=== PATIENT | female | born 1950 | race Caucasian/White ===

== ENCOUNTER 2024-06-10 09:06 | Inpatient (IN) | payer MEDICARE ==
[~2024-06-10] VITALS: Ht 147.3 cm; Wt 106.3 kg
[2024-06-10] VITALS (198 sets, daily range): BP systolic 105–140; BP diastolic 53–76; PULSE 77–84; TEMP 98–98.7; O2SAT 82–100
[2024-06-10] MEDS ORDERED: TYLENOL 500MG500 MG PO (11:19)
[2024-06-10] MEDS ORDERED: VITAMIN D31000 I1 PO (11:23)
[2024-06-10] MEDS ORDERED: ENTRESTO 24 MG1 EACH PO (11:27)
[2024-06-10] MEDS ORDERED: HYGROTON 2525 MG/TAB PO (11:29)
[2024-06-10] MEDS ORDERED: ELIQUIS 5MG PO (11:30)
[2024-06-10] MEDS ORDERED: DICLOFENAC SOD2.5 ML TOP (11:31)
[2024-06-10] MEDS ORDERED: CRESTOR20 MG PO (11:32)
[2024-06-10] MEDS ORDERED: COREG 25MG25 MG/TAB PO (11:33)
[2024-06-10] MEDS ORDERED: K-DUR20 MEQ PO (11:34)
[2024-06-10] MEDS ORDERED: MACROBID 1100 MG/CAP PO (11:35)
[2024-06-10] MEDS ORDERED: NEURONTIN300 MG/CAP PO (11:37)
[2024-06-10] MEDS ORDERED: Docusate Sodium 100 MG CAP PO PRN (13:00)
[2024-06-10] MEDS ORDERED: NS 1,000 ML IV SCH (13:00)
[2024-06-10] MEDS ORDERED: Polyethylene Glycol 3350 17 GM PDS PO PRN (13:00)
[2024-06-10] MEDS ORDERED: Ondansetron 4 MG/2 ML VIAL IV PRN (13:00)
[2024-06-10] MEDS ORDERED: Acetaminophen 325 MG TAB PO PRN (13:00)
[2024-06-10] MEDS ORDERED: cefTRIAXone 2 G in Water For Injection,Sterile 20 ML IV SCH (13:30)
[2024-06-10] MEDS ORDERED: Apixaban 5 MG TABLET PO SCH (21:00)
[2024-06-10] MEDS ORDERED: Gabapentin 300 MG CAP PO SCH (21:00)
[2024-06-10] MEDS ORDERED: Rosuvastatin 20 MG **** subs to Atorvastatin 40 MG PO SCH (21:00)
[2024-06-10] MEDS ORDERED: Atorvastatin 40 MG TAB PO SCH (21:00)
[2024-06-11] VITALS (15 sets, daily range): BP systolic 88–159; BP diastolic 57–85; PULSE 75–86; TEMP 98.5–98.8; O2SAT 95–96
[2024-06-11 05:00] LABS: BASO # 0.1 K/mm3 (0.0-0.2); BASO % 0.6 % (0.0-2.0); EOS % 0.1 % (0.0-4.0); GRAN # 6.2 K/mm3 (1.4-6.5); GRAN % 78.8 % (42.2-75.2); HEMOGLOBIN 11.4 g/dl (12.5-16.0); LYMPH # 0.8 K/mm3 (1.2-3.4); LYMPH % 10.7 % (20.0-51.0); MEAN CELL VOLUME 96 fl (80.0-100.0); MEAN CORPUSCULAR HEMOGLOBIN 33 pg (27-31); MEAN CORPUSCULAR HGB CONC 34 g/dl (33.0-37.0); MEAN PLATELET VOLUME 13.2 fl (7.4-10.4); MONO # 0.7 K/mm3 (0.1-0.6); MONO % 9.3 % (1.7-9.3); PLATELET COUNT 88 K/mm3 (130-400); RED BLOOD COUNT 3.48 M/mm3 (4.10-5.30); REDCELL DISTRIBUTION WIDTH-CV 13.5 % (11.5-14.5)
[2024-06-11 05:10] LABS: HEMATOCRIT 33.3 % (37.0-47.0)
[2024-06-11 05:24] LABS: ALBUMIN 2.6 g/dL (3.4-4.8); BILIRUBIN,TOTAL 0.6 mg/dL (0.2-1.2); CALCIUM 8.3 mg/dL (8.4-10.2); CREATININE, serum 1.2 mg/dL (0.57-1.11); POTASSIUM 3.1 mEq/L (3.5-4.5)
[2024-06-11] MEDS ORDERED: *Potassium Replacement Protocol MC SCH (05:45)
[2024-06-11] MEDS ORDERED: Potassium Chloride 100 ML IV SCH (05:45)
[2024-06-11] MEDS ORDERED: Cholecalciferol (Vit D3) 1000 Units TAB PO SCH (09:00)
--- NOTE | 2024-06-11 09:46 | NUR ---
Initial visit; Patient using telephone so Dryerman/Woman made certain she had a card letting her know of the availability of Spiritual Care at [facility] and a Dryerman/Woman will be here.
--- NOTE | 2024-06-11 09:50 | NUR ---
UPON ENTERING ROOM PT NOTED TO BE ALERT AND AWAKE. RN INDRODUCES SELF TO PT AND REVIEWS PLAN OF CARE FOR THE DAY.PT [id number] NO NEURO DEFICITS NOTED. PT CORRECTS RN WITH DATE RN HE GOT IT WRONG. CARDIAC ASSESMENT WNL WITH NO DEFICTS. RESP ASSESMENT SHOWS SLIGHTLY DIMINISHED LUNG SOUNDS IN BILATERAL LUNG BASES. PT NOTED TO BE ON A NC WITH 0.5 LPM. RN REMOVES OXYGEN AND MONITERS O2 SATS FOR 15 MIN WITH NO DECREASE IN SATURATION. HEENT SHOWS NO DEFICTS. GI ASSESMENT SHOWS NORMOACTIVE BOWELSOUNDS WITH A FLAT NONTENDER BELLY. ASSESMENT SHOWS ARENAS IN PLACE WWITH CLEAR URINE OUTPUT OF 300 ML. THIS WAS NOT EMPTIED FROM LAST SHIFT SO GFR CANNOT BE CALCULATED AT THIS TIME. SOCIAL ASSESMENT SHOWS NO DEFICTS AND PT DENIES FURTHER CARES AFTER DC FROM HOSPITAL. WILL CONTINUE TO MONITER PT THROUGHOUT THE DAY.
--- NOTE | 2024-06-11 13:33 | NUR ---
Orientor met with patient to discuss discharge planning. Patient lives alone in [place], [place] and sees Dr. Zainab Das for primary care. Patient gets her medications from [facility] in [place] with no difficulties. Patient stated she is on assistance programs for two of her expensive medications, Eloquis and Entresto. Patient mostly uses a cane for ambulation and has a walker available at home as needed. Patient reported she is normally independent with ADLS, including driving. Patient works for [employer]. Patient stated she has DPOA-HC completed designating her newphewDelbert (ph#[phone]). SW discussed PT/OT recommendation for Post Acute Rehab vs Home Health. SW provided Medicare.gov lists of options for both SNF and HH, while also discussing [place] [facility] as an option. Patient stated she has been to [place] [facility] before, however at this time prefers to return home. Patient stated she will think about Home Health. Discharge Plan: Home, considering HH SW contacted patient's PCP office and they did not have a copy of DPOA.
--- NOTE | 2024-06-11 19:41 | NUR ---
PT ALERT AND ORIENTED. RESPIRATIONS EVEN AND UNLABORED. PT REPOSITIONED IN BED. PT WAS DOING THE EXERCISED PT/OT GAVE HER TO DO. NO SIGN OF DISTRESS AT THIS TIME. CONTINUE PLAN OF CARE.
--- NOTE | 2024-06-11 20:52 | NUR ---
PT DENIES PAIN, NAUSEA, SOA. ENCOURAGED WATER INTAKE. NO SIGN OF DISTRESS AT THIS TIME. CONTINUE PLAN OF CARE.
[2024-06-12] VITALS (8 sets, daily range): BP systolic 100–126; BP diastolic 60–88; PULSE 79–90; TEMP 97.5–98.7
[2024-06-12 05:04] LABS: BASO # 0.1 K/mm3 (0.0-0.2); BASO % 0.8 % (0.0-2.0); EOS # 0.1 K/mm3 (0.0-0.7); EOS % 1.1 % (0.0-4.0); HEMATOCRIT 34.9 % (37.0-47.0); HEMOGLOBIN 11.7 g/dl (12.5-16.0); LYMPH # 1.3 K/mm3 (1.2-3.4); LYMPH % 21.1 % (20.0-51.0); MEAN CELL VOLUME 99 fl (80.0-100.0); MEAN CORPUSCULAR HEMOGLOBIN 33 pg (27-31); MEAN CORPUSCULAR HGB CONC 34 g/dl (33.0-37.0); MEAN PLATELET VOLUME 12.5 fl (7.4-10.4); MONO # 0.9 K/mm3 (0.1-0.6); MONO % 13.4 % (1.7-9.3); PLATELET COUNT 76 K/mm3 (130-400); RED BLOOD COUNT 3.54 M/mm3 (4.10-5.30); REDCELL DISTRIBUTION WIDTH-CV 13.6 % (11.5-14.5)
[2024-06-12 05:19] LABS: ALBUMIN 2.4 g/dL (3.4-4.8); BILIRUBIN,TOTAL 0.4 mg/dL (0.2-1.2); CALCIUM 8.3 mg/dL (8.4-10.2); CREATININE, serum 1.03 mg/dL (0.57-1.11); POTASSIUM 3.7 mEq/L (3.5-4.5)
[2024-06-12] MEDS ORDERED: Potassium Bicarbonate/Citrate 20 MEQ Effervescent TAB PO SCH (08:00)
[2024-06-12] MEDS ORDERED: Petrolatum, White Ointment 1 Each Tube TP PRN (09:30)
--- NOTE | 2024-06-12 11:32 | NUR ---
PT SITTING UP IN CHAIR AT THIS TIME. HAS AMBULATED WITH PT THIS AM, TOLERATED WELL. PT REPORTS NO PAIN, STATES NO COMPLAINTS. AFEBRILE AND ALL VSS. ARENAS REMOVED AT 1000, PT REQUEST INC PADS TO WEAR TODAY GENERALLY HAS SOME INCONTINENCE. IVF STOPPED AND PT TAKING PO WELL. AWAITING TRANSFER TO MEDICAL FLOOR WHEN BED BECOMES AVAILABLE.
--- NOTE | 2024-06-12 11:33 | NUR ---
Rolling Machine Operator and SW student met with patient to follow up on Home Health. Patient stated she does not feel she needs it at this time and plans to be extra cautious when she goes home. SW encouraged patient that if she changes her mind after she discharges, her PCP office can establish services for her. Patient verbalized understanding. SW contacted patient's nephew, Delbetr to provide update on discharge plan. Delbert indicated he has had some concerns about patient at home but that she has supportive neighbors and friends. Delbert had no futher questions or concerns for SW at this time. Discharge Plan: Home, declined HH
--- NOTE | 2024-06-12 13:40 | NUR ---
PT TRANSFERRED UPSTAIRS TO MEDICAL ROOM 311 VIA WHEELCHAIR. PCT MET IN ROOM, TRANSFERRED PT TO BED. ALL BELONGINGS WITH PT INCLUDING CANE, PURSE, AND CELL PHONE.
--- NOTE | 2024-06-12 21:00 | NUR ---
Patient resting in bed. Denies any pain or needs at this time. IV in right hand and right AC flushe easliy without complications. Assessment complete. Call light and personal items in reach. Bed in low position and bed alarm on.
[2024-06-13] VITALS (8 sets, daily range): BP systolic 100–140; BP diastolic 72–84; PULSE 74–93; TEMP 97.9–98.2
--- NOTE | 2024-06-13 06:13 | NUR ---
No events overnight.
[2024-06-13 06:52] LABS: BASO # 0.1 K/mm3 (0.0-0.2); BASO % 1.2 % (0.0-2.0); EOS # 0.1 K/mm3 (0.0-0.7); EOS % 1.2 % (0.0-4.0); GRAN # 4.2 K/mm3 (1.4-6.5); GRAN % 62.7 % (42.2-75.2); HEMOGLOBIN 11.5 g/dl (12.5-16.0); LYMPH # 1.6 K/mm3 (1.2-3.4); LYMPH % 23.5 % (20.0-51.0); MEAN CELL VOLUME 97 fl (80.0-100.0); MEAN CORPUSCULAR HEMOGLOBIN 33 pg (27-31); MEAN CORPUSCULAR HGB CONC 34 g/dl (33.0-37.0); MONO # 0.7 K/mm3 (0.1-0.6); MONO % 10.7 % (1.7-9.3); PLATELET COUNT 113 K/mm3 (130-400); RED BLOOD COUNT 3.49 M/mm3 (4.10-5.30); REDCELL DISTRIBUTION WIDTH-CV 13.4 % (11.5-14.5)
[2024-06-13 06:53] LABS: HEMATOCRIT 33.9 % (37.0-47.0)
--- NOTE | 2024-06-13 07:34 | NUR ---
Bedside report received from ANNA Samuel. Pt resting in bed with eyes closed and no complaints. Call light within reach and fall precautions in place.
[2024-06-13 07:39] LABS: ALBUMIN 2.7 g/dL (3.4-4.8); BILIRUBIN,TOTAL 0.5 mg/dL (0.2-1.2); CALCIUM 8.8 mg/dL (8.4-10.2); CREATININE, serum 1.03 mg/dL (0.57-1.11); POTASSIUM 3.7 mEq/L (3.5-4.5); TOTAL PROTEIN 5.5 g/dl (6.2-8.1)
[2024-06-13] MEDS ORDERED: CEPHALEXIN500 M1 PO (09:05)
--- NOTE | 2024-06-13 09:15 | NUR ---
Pt awake in bed watching TV with no complaints. Shift assessment completed. VSS. Pt denies pain at this time rating 0/10. Edema noted to BLE. Ecchymosiss scattered throughout pt body noted with purple/bluish discoloration. INT to Rt AC and Rt hand patent with no swelling, redness, or drainage. Telemetry in place, Afib noted with rate control in mid 80s. Pt hs no request at this time. Call light within reach and fall precautions in place.
[2024-06-13] MEDS ORDERED: cefTRIAXone 2 G in Water For Injection,Sterile 20 ML IV SCH (10:00)
--- NOTE | 2024-06-13 16:04 | NUR ---
Inter Com Installer attended clinical rounds with the team and patient is ready for discharge today. [facility] and Hospitalist discussed [facility] and patient declined. Patient did agree to Home Health and wanted to use of [facility]. [facility] sent referral and orders via secure email. SW presented and reviewed IM with patient who verbalized understanding and provided signature. SW placed form in chart and provided copy to patient. Discharge Plan: Home with Home Health
--- NOTE | 2024-06-13 19:25 | NUR ---
Patient sitting in bed. Nephew at bedside. Education packet and discharge information provided to nephew as well per patient request. IV in right hand and right AC discontinued without complications. Assessment complete. VS obtained. Quesions answered at this time. Patient in home clothes. Call light and personal items in reach. Bed in low position.
--- NOTE | 2024-06-13 19:50 | NUR ---
Patient left with nephew through ER entrance. Patient accompanied by staff and taken via wheelchair. Patient has all personal belongings and green folder with her. Patient left at this time.
== END 2024-06-13 19:50 | disposition home health service (06) | DRG 871 ==
LOC: ICU 09:06 → MEDICAL 06-11 10:01
PROVIDERS: ADMIT Hospitalist
DX: A41.59 Other Gram-negative sepsis (principal); I21.A1 Myocardial infarction type 2; K72.00 Acute and subacute hepatic failure without coma; R65.21 Severe sepsis with septic shock; N39.0 Urinary tract infection, site not specified; N17.9 Acute kidney failure, unspecified; E87.20 Acidosis, unspecified; M62.82 Rhabdomyolysis; Z68.42 Body mass index [BMI] 45.0-49.9, adult; D69.6 Thrombocytopenia, unspecified; M10.9 Gout, unspecified; I25.10 Atherosclerotic heart disease of native coronary artery without angina pectoris; M25.552 Pain in left hip; I95.9 Hypotension, unspecified; E66.01 Morbid (severe) obesity due to excess calories; I48.91 Unspecified atrial fibrillation; K57.30 Diverticulosis of large intestine without perforation or abscess without bleeding; E87.6 Hypokalemia; I10 Essential (primary) hypertension; D25.9 Leiomyoma of uterus, unspecified; R32 Unspecified urinary incontinence; M47.816 Spondylosis without myelopathy or radiculopathy, lumbar region; M19.90 Unspecified osteoarthritis, unspecified site; Z79.899 Other long term (current) drug therapy; Z79.01 Long term (current) use of anticoagulants; Z88.5 Allergy status to narcotic agent; Z88.8 Allergy status to other drugs, medicaments and biological substances
CPT/HCPCS: J0696; J2405; J3480; J7030; J7060